=== PATIENT | female | born 1950 | race Caucasian/White ===

== ENCOUNTER → 2020-03-03 11:17 | Outpatient (CLI) | payer MEDICARE, OTHER, SELFPAY ==
--- NOTE | 2020-03-03 | DI.MG.S_ITS ---
BILATERAL DIGITAL SCREENING MAMMOGRAM 3D/2D WITH CAD: 03/03/2020 CLINICAL: Routine screening. Family history of breast cancer. Comparison is made to exams dated: 10/02/2015 mammogram, 02/12/2017 mammogram, and 02/12/2018 mammogram - [facility]. There are scattered fibroglandular elements in both breasts. Current study was also evaluated with a Computer Aided Detection (CAD) system. No significant masses, calcifications, or other findings are seen in either breast. There has been no significant interval change. IMPRESSION: NEGATIVE There is no mammographic evidence of malignancy. A 1 year screening mammogram is recommended. This exam was interpreted at Station ID: [id number]. NOTE: For mammograms, a report in lay terms will be sent to the patient. Approximately 15% of breast malignancies will not be visualized mammographically. In the management of a palpable breast mass, a negative mammogram must not discourage biopsy of a clinically suspicious lesion. Electronically Signed By: Dio hill/davy:03/05/2020 10:15:05 letter sent: Normal Exam ACR BI-RADS Category 1: Negative 3341F
== END ==
PROVIDERS: Family Provider Physician Assistant Medical; PCP Internal Medicine; Referring Provider Internal Medicine; Visit Provider Internal Medicine
DX: Z12.31 Encounter for screening mammogram for malignant neoplasm of breast (principal); Z80.3 Family history of malignant neoplasm of breast
CPT/HCPCS: 77063; 77067

== ENCOUNTER → 2020-10-26 10:06 | Outpatient (CLI) | payer MEDICARE, OTHER, SELFPAY ==
[2020-10-26 11:36] LABS: COVID19 -Nasal RAPID Negative (Negative)
== END ==
PROVIDERS: Family Provider Physician Assistant Medical; PCP Internal Medicine; Visit Provider Surgery
DX: Z01.812 Encounter for preprocedural laboratory examination (principal); Z20.822 Contact with and (suspected) exposure to COVID-19
CPT/HCPCS: 87635; C9803

== ENCOUNTER 2020-10-29 06:27 | Day surgery (SDC) | payer MEDICARE, OTHER, SELFPAY ==
--- NOTE | 2020-10-29 | PATH_ITS ---
[facility] Accession Number: [id number] . 01 Material submitted: . PART A: gastrointestinal site - GASTRIC PART B: colon - COLONIC BIOPSY . 02 Diagnosis: A. Stomach, Biopsies: Antral and body type mucosa with mild chronic gastritis. Negative for Helicobacter by immunohistochemistry. Negative for intestinal metaplasia. Negative for dysplasia and malignancy. . B. Colon, Biopsy: Colonic mucosa with no diagnostic abnormality. Negative for active, chronic, and microscopic colitis. Negative for dysplasia and malignancy. [facility] 11/01/2020 1533 Local . 02 Electronically signed: . Yissel Garcia MD, Pathologist NPI- [id number] . 01 Gross description: . Part A: GASTRIC: Received in formalin are 3 fragment(s) of marshall, soft tissue measuring 0.4 x 0.3 x 0.2 cm to 0.2 x 0.2 x 0.2 cm submitted entirely in 1 cassette(s) Part B: COLONIC BIOPSY: Received in formalin is 1 fragment(s) of marshall, soft tissue measuring 0.4 x 0.2 x 0.2 cm submitted entirely in 1 cassette(s) /KEISHA 10/30/2020 0537 Local . 02 Microscopic: . A. An immunohistochemical stain was performed to evaluate for Helicobacter organisms and is negative. The control stain showed appropriate reactivity. . * This test was developed and its performance characteristics determined by [facility]. It has not been cleared or approved by the U.S. Food and Drug Administration. The FDA has determined that such clearance or approval is not necessary. This test is used for clinical purposes. It should not be regarded as investigational or for research. . 02 Pathologist provided ICD-10: D64.9 . 02 CPT . 935414, 046206, F46402 Performed at: 01 [facility] [address] [facility], [place], [place] [id number] MD Fab Strange MD Phone: [phone] Performed at: [address] [facility] [id number] [place], [place] [id number] MD Yissel Garcia MD Phone: [phone]
[2020-10-29 07:17] VITALS: BP 152/82; PULSE 102; RESP 14; TEMP 36.2; O2SAT 97; BMI 28.3
[2020-10-29] MEDS: LACTATED RINGERS 1,000 ML 200 ML IV (07:41)
--- NOTE | 2020-10-29 07:41 | PM.PREOP ---
Pre-operative Note Interval Note History & Physical reviewed/Exam performed by Physician: Yes Changes to H&P: No
[2020-10-29] MEDS: ONDANSETRON 4 MG/2 ML INJ IV (07:45)
[2020-10-29] MEDS: fentaNYL 250 MCG/5 ML INJ IV (07:52)
[2020-10-29] MEDS: MIDAZOLAM 5 MG/5 ML VIAL IV (08:06)
[2020-10-29 08:22] VITALS: BP 136/80; PULSE 110; RESP 15; TEMP 36.9; O2SAT 93
--- NOTE | 2020-10-29 08:25 | PM.OP.ENDO ---
Operative Date/Time/Diagnoses Date of procedure: 10/29/20 Time of procedure: 08:25 Pre-op diagnosis: Anemia Post-op diagnosis: other (Alcoholic gastritis, colitis) Procedure & Clinicians Study performed: Esophagealoduodenoscopy and colonoscopy Same procedure as scheduled: Yes Indications: Anemia, blood per rectum Surgeon: Nigel Zaldivar Procedure Notes Procedure in detail: Medications: Conscious sedation using 5mg IV midazolam and 100mcg IV of fentanyl The history and physical was performed/updated and the patient is ASA class is 1. The procedure was discussed in detail with the patient. Potential risks complications including infection, bleeding, missed diagnosis, perforation, need for surgery, and were explained. Their questions were answered and informed consent was obtained. Patient was brought to the procedure room and placed standard monitoring equipment. The patient's vital signs were monitored continuously throughout the entire procedure. Prior to starting time-out was performed. The patient was placed in the left lateral recumbent position. Procedural sedation was administered. The scope was inserted into the mouth. Advanced into the esophagus under direct visualization. the stomach was entered. The stomach was notable for diffuse gastritis no ulcers. Biopsies were taken. Duodenum was entered and was normal. Scope withdrawn retroflexed no hiatal hernia. GE junction at 35 cm from the incisions. No esophagitis or strictures. Stomach deflated. Examination began with a thorough inspection of the perianal area there was no evidence of fissures, fistulae, external hemorrhoids or cutaneous malignancy. The colonoscopy scope was then placed into the anal canal and was advanced to the cecum, which was identified by the ileocecal valve, the appendiceal orifice and the confluence of the taenia. The scope was then slowly withdrawn examining colon thoroughly in all directions, irrigating it of any residual stool. 1. No polyps or masses 2. Diffuse colitis primarily of the cecum. Biopsies taken. 3. Grade 1 internal hemorrhoids no active hemorrhage. The patient tolerated the procedure well. They will be discharged once criteria are met. The prep was of good/excellent quality. The withdrawl time was * minutes. The sedation time was * minutes. Scope withdrawal time: 7 Sedation minutes: 25 Specimen(s): other (gastric, colonic) Complications: none Impression: alcoholic gastritis, colitis Post-procedure Recommendations: Colonscopy in 10 years Plan for aftercare: stop alcohol, follow up biopsies Disposition: same day surgery
[2020-10-29 08:27] VITALS: BP 129/72; PULSE 109; RESP 14; O2SAT 91
[2020-10-29 08:32] VITALS: BP 146/85; PULSE 111; RESP 14; O2SAT 95
[2020-10-29 08:36] VITALS: BP 143/74; PULSE 105; RESP 14; O2SAT 95
[2020-10-29 08:51] VITALS: BP 145/84; PULSE 106; RESP 14; O2SAT 90
== END 2020-10-29 09:03 | disposition home or self-care (01) ==
PROVIDERS: Family Provider Physician Assistant Medical; PCP Internal Medicine; Referring Provider Surgery; Visit Provider Surgery
PROC: 0DJ08ZZ Inspection of Upper Intestinal Tract, Via Natural or Artificial Opening Endoscopic (ICD-10-PCS; CPT 43235; principal; 2020-10-29 07:45)
PROC: 0DJD8ZZ Inspection of Lower Intestinal Tract, Via Natural or Artificial Opening Endoscopic (ICD-10-PCS; CPT 45378; 2020-10-29 07:45)
DX: D64.9 Anemia, unspecified (principal); K62.5 Hemorrhage of anus and rectum; I10 Essential (primary) hypertension; J45.909 Unspecified asthma, uncomplicated; K64.0 First degree hemorrhoids; K52.9 Noninfective gastroenteritis and colitis, unspecified; K29.20 Alcoholic gastritis without bleeding
CPT/HCPCS: 45380; 43239; 99152; 99153; J2250; J2405; J3010

== ENCOUNTER → 2021-03-21 15:38 | Outpatient (CLI) | payer MEDICARE, OTHER, SELFPAY ==
--- NOTE | 2021-03-21 | DI.MG.S_ITS ---
BILATERAL DIGITAL SCREENING MAMMOGRAM 3D/2D WITH CAD: 03/21/2021 CLINICAL: Routine screening. Family history of breast cancer. Comparison is made to exams dated: 02/12/2018 mammogram, 02/12/2017 mammogram, and 10/02/2015 mammogram - [facility]. The tissue of both breasts is heterogeneously dense. This may lower the sensitivity of mammography. Current study was also evaluated with a Computer Aided Detection (CAD) system. There are grouped fine calcifications in the right breast at 11 o'clock posterior depth. No other significant masses, calcifications, or other findings are seen in either breast. IMPRESSION: INCOMPLETE: NEEDS ADDITIONAL IMAGING EVALUATION The grouped fine calcifications in the right breast are indeterminate. Mediolateral, spot magnification, and additional views are recommended. This exam was interpreted at Station ID: [id number]. NOTE: For mammograms, a report in lay terms will be sent to the patient. Approximately 15% of breast malignancies will not be visualized mammographically. In the management of a palpable breast mass, a negative mammogram must not discourage biopsy of a clinically suspicious lesion. Electronically Signed By: Fab nuñez/davy:03/21/2021 17:05:34 letter sent: Additional Imaging Needed ACR BI-RADS Category 0: Incomplete 3340F
== END ==
PROVIDERS: Family Provider Physician Assistant Medical; PCP Internal Medicine; Referring Provider Internal Medicine; Visit Provider Internal Medicine
DX: Z12.31 Encounter for screening mammogram for malignant neoplasm of breast (principal); Z80.3 Family history of malignant neoplasm of breast
CPT/HCPCS: 77063; 77067

== ENCOUNTER → 2021-03-28 13:27 | Outpatient (CLI) | payer MEDICARE, OTHER, SELFPAY ==
--- NOTE | 2021-03-28 13:28 | DI.MG.S_ITS ---
UNILATERAL RIGHT DIGITAL DIAGNOSTIC MAMMOGRAM 3D/2D WITH ADDITIONAL VIEWS: 03/28/2021 CLINICAL: Additional evaluation requested from prior study. Comparison is made to exams dated: 03/21/2021 mammogram, 03/03/2020 mammogram - [facility], and 02/12/2018 mammogram - [facility]. The tissue of right breast is heterogeneously dense. This may lower the sensitivity of mammography. There are stable grouped fine calcifications in the right breast at 11 o'clock posterior depth. No other significant masses or calcifications are seen in the breast. IMPRESSION: PROBABLY BENIGN The stable grouped fine calcifications in the right breast are probably benign. A follow-up mammogram in 6 months is recommended. A follow-up mammogram in 6 months is recommended to demonstrate stability. This exam was interpreted at Station ID: [id number]. NOTE: For mammograms, a report in lay terms will be sent to the patient. Approximately 15% of breast malignancies will not be visualized mammographically. In the management of a palpable breast mass, a negative mammogram must not discourage biopsy of a clinically suspicious lesion. Electronically Signed By: Murtaza Rader M.D., jr/davy:03/28/2021 14:27:23 letter sent: Normal Exam ACR BI-RADS Category 3: Probably benign 3343F
== END ==
PROVIDERS: Family Provider Physician Assistant Medical; PCP Internal Medicine; Referring Provider Internal Medicine; Visit Provider Internal Medicine
DX: R92.8 Other abnormal and inconclusive findings on diagnostic imaging of breast (principal); R92.2 Inconclusive mammogram
CPT/HCPCS: 77065; G0279

== ENCOUNTER → 2021-09-05 12:42 | Outpatient (CLI) | payer MEDICARE, OTHER, SELFPAY ==
--- NOTE | 2021-09-05 12:44 | DI.MG.S_ITS ---
UNILATERAL RIGHT DIGITAL DIAGNOSTIC MAMMOGRAM 3D/2D SHORT-TERM FOLLOW-UP: 09/05/2021 CLINICAL: Short term follow up of the right breast. Comparison is made to exams dated: 03/28/2021 mammogram, 03/21/2021 mammogram, and 03/03/2020 mammogram - [facility]. The tissue of right breast is heterogeneously dense. This may lower the sensitivity of mammography. There are stable grouped fine calcifications in the right breast at 11 o'clock posterior depth. No other significant masses or calcifications are seen in the breast. IMPRESSION: PROBABLY BENIGN The stable grouped fine calcifications in the right breast are probably benign. A follow-up mammogram in 6 months is recommended. A follow-up mammogram in 6 months is recommended to demonstrate stability. This exam was interpreted at Station ID: [id number]. NOTE: For mammograms, a report in lay terms will be sent to the patient. Approximately 15% of breast malignancies will not be visualized mammographically. In the management of a palpable breast mass, a negative mammogram must not discourage biopsy of a clinically suspicious lesion. Electronically Signed By: Murtaza Rader M.D., jr/davy:09/05/2021 13:15:04 letter sent: Followup Recommended ACR BI-RADS Category 3: Probably benign 3343F
== END ==
PROVIDERS: Family Provider Physician Assistant Medical; PCP Internal Medicine; Referring Provider Internal Medicine; Visit Provider Internal Medicine
DX: R92.8 Other abnormal and inconclusive findings on diagnostic imaging of breast (principal); R92.1 Mammographic calcification found on diagnostic imaging of breast
CPT/HCPCS: 77065; G0279

== ENCOUNTER → 2022-02-24 12:58 | Outpatient (CLI) | payer MEDICARE, OTHER, SELFPAY ==
[2022-02-24 16:05] LABS: COVID19 -Nasal RAPID Negative (Negative)
== END ==
PROVIDERS: Family Provider Physician Assistant Medical; PCP Internal Medicine; Visit Provider Surgery
DX: Z20.822 Contact with and (suspected) exposure to COVID-19 (principal); Z01.812 Encounter for preprocedural laboratory examination
CPT/HCPCS: 87635; C9803

== ENCOUNTER 2022-02-26 13:23 | Day surgery (SDC) | payer MEDICARE, OTHER, SELFPAY ==
[2022-02-26 13:43] VITALS: BMI 31.8
[2022-02-26 13:49] VITALS: BP 172/89; PULSE 86; RESP 16; TEMP 36.1; O2SAT 100
--- NOTE | 2022-02-26 13:57 | PM.HP.1 ---
History of Present Illness History of Present Illness Date Patient Seen: 02/26/22 Time Patient Seen: 13:57 Chief complaint: EGD Narrative: Anemia and GAVE. Patient History Medical History Anemia Asthma GERD (gastroesophageal reflux disease) HTN (hypertension) Surgical History Hx of hysterectomy Family & Social History Family History Mother Hypertension Heart disease Brother Diabetes mellitus Father Cancer Social History: household members spouse Tobacco & Substance use: Smoking Status Former smoker alcohol intake former alcohol intake frequency 3 or more drinks per day Substance Use Type does not use Meds Home Medications and Allergies Home Medications Medication Instructions Recorded Confirmed Type losartan 100 mg tablet 100 mg PO DAILY 10/08/20 02/26/22 History multivitamin 1 tab PO DAILY 10/08/20 02/26/22 History omeprazole 20 mg capsule,delayed 20 mg PO DAILY 10/08/20 02/26/22 History release albuterol sulfate 90 mcg/actuation 2 puff inhalation PRN PRN 02/26/22 02/26/22 History aerosol inhaler Shortness Of Breath hydrochlorothiazide 25 mg tablet 25 mg PO DAILY 02/26/22 02/26/22 History Allergies Allergy/AdvReac Type Severity Reaction Status Date / Time Sulfa (Sulfonamide Allergy Mild Rash Verified 02/26/22 13:41 Antibiotics) Review of Systems Review of Systems ROS: Yes All systems reviewed with the patient and are negative except as otherwise documented Exam Const General: cooperative HENMT Head: normal to inspection Eyes General: appearance normal, both eyes and all related structures Neck Neck: normal visual inspection Chest Chest: normal inspection of the chest Resp Effort & Inspection: normal respiratory effort Cardio Rate: regular rate GI Inspection: normal to inspection Skin General: no rashes or lesions noted Neuro General: patient alert and patient awake Extrem General: normal to inspection and no pedal edema Psych Appearance: grossly normal Assessment & Plan Assessment & Plan narrative: 71 yo female c anemia and GAVE. Repeat EGD is pursued for APC application. Time Spent With Patient Critical Care time: I spent a total of [] minutes of critical care time on this patient's care today; this time is exclusive of procedural time.
--- NOTE | 2022-02-26 13:59 | PM.PREOP ---
Pre-operative Note COVID-19 COVID-19 status: Negative Result date/Date tested (Pos, Neg/Pending): 02/24/22 Criteria for continued procedure: Possibility delay results in more complex future surgery or treatment Interval Note History & Physical reviewed/Exam performed by Physician: Yes Changes to H&P: No ASA Class (for procedural sedation): II
[2022-02-26] MEDS: SODIUM CHLORIDE 0.9% 1,000 ML 84 ML IV (14:03)
--- NOTE | 2022-02-26 15:00 | P.OP.EGD_ITS ---
Operative Date/Time/Diagnoses Date of procedure: 02/26/22 Time of procedure: 15:00 Pre-op diagnosis: Anemia with mild gave noted on capsule Post-op diagnosis: same Procedure & Clinicians Study performed: EGD with APC ablation Same procedure as scheduled: Yes Indications: Anemia with GAVE Surgeon: Roland Chavira Procedure Notes SCOAP/Timeout: Done Procedure in detail: After the risks and benefits were explained, written and verbal informed consent was obtained. The patient was brought into the procedure room and placed into the left lateral decubitus position. Please see nurse holter scanning technician notes for sedation details. The scope was introduced into the mouth through the bite block and advanced under direct visualization to the 2nd portion of the duodenum. The scope was slowly withdrawn carefully examining the mucosa for any defects or lesions. Retroflexed views were accomplished in the stomach. The stomach was decompressed, the scope was then removed from the patient who tolerated the procedure well. Specimen(s): none sent Complications: none Impression: 1. Duodenum: No bleeding pathology was appreciated from the bulb through to the 2nd portion. 2. Stomach: The patient had mild GAVE with a couple of focal areas where there was minimal active oozing. Using a circumferential APC probe with initial st omach settings at 0.8 liters/minute and 30 w we applied the probe. I felt that there was too much energy involved so we decreased the wattage down to 20. We then continued to address the antrum in a relatively circumferential way. The main areas of vascular ectasia were addressed. This was certainly not a comprehensive application. There were no bleeding complications and the patient seemed to tolerate this quite well. Retroflexed views of the LES disclosed no evidence of varices. Otherwise the more proximal stomach appeared consistent with a portal hypertensive gastropathy. 3. Esophagus: The squamocolumnar junction correlated with the top of the gastric folds. GEJ was at 35 cm from the incisors. The patient had small varices in the distal esophagus without stigmata no high-risk lesions. These completely flattened out with air insufflation. Endoscopic diagnosis 1. Small esophageal varices. 2. 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 Portal gastropathy Post-procedure Plan for aftercare: 1. Continue to monitor CBC frequently in the outpatient setting. Should there be ongoing drops in hemoglobin or signs of melena etc. then I would recommend the patient be considered for a double balloon small bowel enteroscopy in light of the capsule findings showing evidence of fresh blood about an hour down stream from the duodenal bulb. Disposition: PACU
[2022-02-26 15:04] VITALS: BP 130/81; PULSE 84; RESP 18; TEMP 36.4; O2SAT 98
--- NOTE | 2022-02-26 15:07 | SUR.PHASEI ---
Dr. Fuentes in to talk to pt.
[2022-02-26 15:09] VITALS: BP 136/78; PULSE 81; RESP 18; O2SAT 98
[2022-02-26 15:14] VITALS: BP 148/72; PULSE 79; RESP 18; O2SAT 98
[2022-02-26 15:18] VITALS: BP 136/76; PULSE 76; RESP 18; TEMP 36.4; O2SAT 99
[2022-02-26 15:30] VITALS: BP 154/81; PULSE 72; RESP 18; O2SAT 100
--- NOTE | 2022-02-26 15:52 | SUR.PHASEII ---
Pt. given discharge instructions. No distress noted. Pt states she understands discharge instructions. Pt discharged with her . Dr. Fuentes came and explained her diagnosis to her.
== END 2022-02-26 15:40 | disposition home or self-care (01) ==
PROVIDERS: Family Provider Physician Assistant Medical; PCP Internal Medicine; Referring Provider Internal Medicine Gastroenterology; Visit Provider Internal Medicine Gastroenterology
PROC: 0DJ08ZZ Inspection of Upper Intestinal Tract, Via Natural or Artificial Opening Endoscopic (ICD-10-PCS; CPT 43235; principal; 2022-02-26 14:30)
DX: D50.9 Iron deficiency anemia, unspecified (principal); I10 Essential (primary) hypertension; J45.909 Unspecified asthma, uncomplicated; F10.10 Alcohol abuse, uncomplicated; K76.6 Portal hypertension; K31.89 Other diseases of stomach and duodenum; K31.819 Angiodysplasia of stomach and duodenum without bleeding
CPT/HCPCS: 43270; J2704

== ENCOUNTER → 2022-03-07 11:48 | Outpatient (CLI) | payer MEDICARE, OTHER, SELFPAY ==
--- NOTE | 2022-03-07 | DI.MG.S_ITS ---
BILATERAL DIGITAL DIAGNOSTIC MAMMOGRAM 3D/2D: 03/07/2022 CLINICAL: Short term follow up of the right breast, due for bilateral imaging. Comparison is made to exams dated: 09/05/2021 mammogram, 03/28/2021 mammogram, 03/21/2021 mammogram, 03/03/2020 mammogram - [facility], and 02/12/2018 mammogram - [facility]. Both breasts are heterogeneously dense, which may obscure small masses (category c / 51-75% glandular tissue). There are stable grouped punctate and round calcifications in the right breast at 11 o'clock posterior depth. No other significant masses, calcifications, or other findings are seen in either breast. IMPRESSION: PROBABLY BENIGN The stable grouped punctate and round calcifications in the right breast are probably benign. A follow-up mammogram in 12 months is recommended to demonstrate long-term stability. Exam findings were conveyed to the patient. Based on the Tyrer Cuzick model (a risk assessment model) the patient's lifetime risk is 8.7% and her 10 year risk is 5.2%. According to the ACR, ACS, and NCCN guidelines, an annual breast MRI exam along with mammogram is recommended if the patient's lifetime risk is 20% or greater. This exam was interpreted at Station ID: [id number]. NOTE: For mammograms, a report in lay terms will be sent to the patient. Approximately 15% of breast malignancies will not be visualized mammographically. In the management of a palpable breast mass, a negative mammogram must not discourage biopsy of a clinically suspicious lesion. Electronically Signed By: Julio Barba M.D. slc/:03/07/2022 12:55:38 letter sent: Followup Recommended ACR BI-RADS Category 3: Probably benign 3343F
== END ==
PROVIDERS: Family Provider Physician Assistant Medical; PCP Internal Medicine; Referring Provider Internal Medicine; Visit Provider Internal Medicine
DX: R92.8 Other abnormal and inconclusive findings on diagnostic imaging of breast (principal); R92.1 Mammographic calcification found on diagnostic imaging of breast
CPT/HCPCS: 77066; G0279

== ENCOUNTER → 2022-10-26 | Outpatient (CLI) | payer MEDICARE, OTHER, SELFPAY | LOC: MRI 07-06 09:24 | PROVIDERS: Family Provider Physician Assistant Medical; PCP Internal Medicine; Referring Provider Physical Medicine & Rehabilitation Pain Medicine; Visit Provider Physical Medicine & Rehabilitation Pain Medicine ==

== ENCOUNTER → 2023-04-23 11:51 | Outpatient (CLI) | payer MEDICARE, OTHER, SELFPAY ==
--- NOTE | 2023-04-23 | DI.MG.S_ITS ---
BILATERAL DIGITAL DIAGNOSTIC MAMMOGRAM 3D/2D: 04/23/2023 CLINICAL: Patient returns for a 12 month follow up of the right breast, due for bilateral exam. Comparison is made to exams dated: 03/07/2022 mammogram, 09/05/2021 mammogram, 03/28/2021 mammogram, 03/21/2021 mammogram, and 03/03/2020 mammogram - [facility]. Both breasts are heterogeneously dense, which may obscure small masses (category c / 51-75% glandular tissue). There are 4 mm grouped round and dystrophic calcifications in the right breast at 11 o'clock posterior depth. These are not significantly changed since 03/21/2021. No other significant masses, calcifications, or other findings are seen in either breast. IMPRESSION: BENIGN Right breast 4 mm grouped round and dystrophic calcifications at 11 o'clock, not significantly changed since 2020. Given stability for over 2 years, finding is most consistent with benign etiology. No mammographic evidence of malignancy. A 1 year screening mammogram is recommended. Findings and recommendations were conveyed to the patient during today's evaluation. Based on the Tyrer Cuzick model (a risk assessment model) the patient's lifetime risk is 8.2% and her 10 year risk is 5.2%. According to the ACR, ACS, and NCCN guidelines, an annual breast MRI exam along with mammogram is recommended if the patient's lifetime risk is 20% or greater. This exam was interpreted at Station ID: [id number]. NOTE: For mammograms, a report in lay terms will be sent to the patient. Approximately 15% of breast malignancies will not be visualized mammographically. In the management of a palpable breast mass, a negative mammogram must not discourage biopsy of a clinically suspicious lesion. Electronically Signed By: Delisa Dubon M.D., PH.D eb/:04/23/2023 13:10:32 letter sent: Normal Exam ACR BI-RADS Category 2: Benign Finding(s) 3342F
== END ==
PROVIDERS: Family Provider Physician Assistant Medical; PCP Internal Medicine; Referring Provider Internal Medicine; Visit Provider Internal Medicine
DX: R92.8 Other abnormal and inconclusive findings on diagnostic imaging of breast (principal); R92.1 Mammographic calcification found on diagnostic imaging of breast
CPT/HCPCS: 77066; G0279

== ENCOUNTER → 2024-07-25 12:46 | Outpatient (CLI) | payer MEDICARE, OTHER, SELFPAY ==
--- NOTE | 2024-07-25 12:49 | DI.MG.S_ITS ---
MM screening mammo BI: 07/25/2024. BI-RADS: 2 CLINICAL: 73-year old female for bilateral screening mammogram. Tyrer-Cuzick lifetime risk of 4.6%. No personal or first-degree family history of breast cancer. Current reported family history of breast cancer: paternal grandmother. The patient had a prior right breast biopsy. PRIOR EXAMS 04/23/2023, 03/07/2022, 09/05/2021, 03/28/2021, 03/21/2021, 03/03/2020. MAMMOGRAPHY TECHNIQUE: 2D and 3D (tomosynthesis) digital mammographic views obtained, with additional images as needed for full coverage. Current study was also evaluated with a Computer Aided Detection (CAD) system. DENSITY C. The breasts are heterogeneously dense, which may obscure small masses. MAMMOGRAPHY FINDINGS Bilateral: Typically-benign vascular calcifications noted. IMPRESSION: * No evidence of malignancy with benign findings. RECOMMENDATIONS Bilateral * Annual screening mammography. OVERALL ASSESSMENT CATEGORY BI-RADS-2: Benign. The [employer] recommends annual screening mammography beginning at age 40 for women with average risk of breast cancer. ELECTRONICALLY SIGNED: Julio Barba M.D. on 07/25/2024 at 05:23:46 PM PT Interpreting Station ID: [id number]
== END ==
PROVIDERS: Family Provider Physician Assistant Medical; PCP Internal Medicine; Referring Provider Internal Medicine; Visit Provider Internal Medicine
DX: Z12.31 Encounter for screening mammogram for malignant neoplasm of breast (principal); R92.1 Mammographic calcification found on diagnostic imaging of breast; R92.333 Mammographic heterogeneous density, bilateral breasts; Z80.3 Family history of malignant neoplasm of breast
CPT/HCPCS: 77063; 77067